=== PATIENT | female | born 1955 | race Caucasian/White ===

== ENCOUNTER → 2023-04-29 14:36 | Outpatient (CLI) | payer MEDICARE, SELFPAY ==
--- NOTE | ~2023-04-29 | XR_ITS ---
EXAM: XR knee LT 3V DATE: 04/29/2023 14:51 HISTORY: no injury anterior knee pain for several years . COMPARISON: None available. FINDINGS: Small knee joint effusion. Moderate medial joint space narrowing. Tricompartmental osteoph ytosis, moderate in the medial compartment. Decreased mineralization. No fracture or dislocation. No lytic or blastic lesion. Joint spaces are maintained. No erosion or periosteal change. Soft tissues w ithin normal limits. IMPRESSION: Tricompartmental left knee osteoarthritic arthritis, moderate in the medial compartment. Reviewed, dictated and finalized at location K. IMPRESSION: Tricompartmental left knee osteoarthritic arthritis, moderate in th e medial compartment.
--- NOTE | ~2023-04-29 | XR_ITS ---
EXAM: XR hand LT 2V, XR hand RT 2V DATE: 04/29/2023 14:51 HISTORY: no injury bilateral hand pain for a few years . COMPARISON: None available. FINDINGS: Normal mineralization. Old right ulnar styloid fracture No acute fracture or dislocation. No lytic or blastic lesion. Joint spaces and physes are mild scattered arthritic changes typical of o steoarthritis, most notably in the interphalangeal joints and trapeziometacarpal joints. No erosion o r periosteal change. Soft tissues within normal limits. IMPRESSION: Mild polyarticular osteoarthritis of the hands. Reviewed, dictated and finalized at location K. IMPRESSION: Mild polyarticular osteoarthritis of the hands.
== END ==
PROVIDERS: PCP Clinical Nurse Specialist; Visit Provider Clinical Nurse Specialist
DX: M17.12 Unilateral primary osteoarthritis, left knee (principal); M19.041 Primary osteoarthritis, right hand; M19.042 Primary osteoarthritis, left hand
CPT/HCPCS: 73120; 73562

== ENCOUNTER 2023-11-08 16:17 | Outpatient (CLI) | payer MEDICARE, SELFPAY ==
--- NOTE | ~2023-11-08 | XR_ITS ---
EXAMINATION: XR lumbar spine 2-3V DATE: 11/08/2023 16:28 INDICATION: Right-sided lumbar radiculopathy TECHNIQUE: Anteroposterior and lateral views of the lumbar spine, and cone-down lateral view of the l umbosacral junction were obtained. COMPARISON: None. FINDINGS: 13 degree lower lumbar levoscoliosis measured between L3 and L5. 2 mm anterolisthesis L4 on L5. 2 mm retrolisthesis L1 on L2. Vertebral body heights are normal. Severe disc height loss at L1-L2, moderat e disc height loss at L2-L3 and mild disc height loss at L3-L4 and L4-L5. Severe left-sided and moder ate right-sided facet osteoarthritis at L5-S1. Mild facet osteoarthritis and more cephalad lumbar spi ne. Mild bilateral sacral iliac osteoarthritis. Visualized lung bases are clear with no pleural effus ion. IMPRESSION: 1. Moderate lumbar levoscoliosis with moderate to severe upper lumbar predominant spondylosis. Reviewed, dictated and finalized at location A. CHER AROUND IMPRESSION: 1. Moderate lumbar levoscoliosis with moderate to severe upper lumbar predomina nt spondylosis.
== END 2023-11-08 16:18 ==
PROVIDERS: PCP Clinical Nurse Specialist; Visit Provider Clinical Nurse Specialist
DX: M41.86 Other forms of scoliosis, lumbar region (principal)
CPT/HCPCS: 72100

== ENCOUNTER → 2023-11-29 09:42 | Outpatient (CLI) | payer MEDICARE, SELFPAY ==
--- NOTE | ~2023-11-29 | XR_ITS ---
AP view of the pelvis and AP and lateral views of the bilateral hips Clinical history: Pain, sacroiliitis Findings: There is subtle linear lucency through the greater trochanter of the left proximal femur, s uggestive of status post, possible subacute fracture isolated to the left greater trochanter. No othe r fracture or dislocation seen. Bilateral hip and SI joint spaces are preserved. Soft tissues are unr emarkable. Impression: Probable fracture isolated to the left greater trochanter, possibly subacute in nature. Correlate cli nically. SI joints are unremarkable. Reviewed, dictated and finalized at location M. ENT ASSISTANT Impression: Probable fracture isolated to the left greater trochanter, possibly subacute in nature. Correlate clinically. SI joints are unremarkable.
== END ==
PROVIDERS: PCP Clinical Nurse Specialist; Visit Provider Anesthesiology Pain Medicine
DX: M46.1 Sacroiliitis, not elsewhere classified (principal); G89.29 Other chronic pain; M25.551 Pain in right hip; M54.9 Dorsalgia, unspecified
CPT/HCPCS: 73521

== ENCOUNTER 2024-01-26 13:31 | Outpatient (CLI) | payer MEDICARE, SELFPAY ==
--- NOTE | 2024-01-26 14:15 | NEURO_ITS ---
Impression: # Complains of numbness of legs and back pain. Non-diabetic. # Poor sensory responses. # Needle/EMG exam abnormal in bilateral EDB. # Higher involvement needs to be ruled out. Nerve Conduction Studies Anti Sensory Summary Table Stim Site NR Peak (ms) P-T Amp (?V) Site1 Site2 Delta-P (ms) Dist (cm) Garrett (m/s) Left Saphenous Anti Sensory (Ant Med Mall) 14cm 3.1 24.1 14cm Ant Med Mall 3.1 0.0 Right Saphenous Anti Sensory (Ant Med Mall) 14cm 2.5 7.3 14cm Ant Med Mall 2.5 0.0 Left Sup Fibular Anti Sensory (Ant Lat Mall) NO RESPONSE 14 cm NR 14 cm Ant Lat Mall 16.0 Right Sup Fibular Anti Sensory (Ant Lat Mall) NO RESPONSE 14 cm NR 14 cm Ant Lat Mall 16.0 Left Sural Anti Sensory (Lat Mall) Calf 3.4 13.4 Calf Lat Mall 3.4 16.0 47 Right Sural Anti Sensory (Lat Mall) Calf 3.8 18.7 Calf Lat Mall 3.8 16.0 42 Motor Summary Table Stim Site NR Onset (ms) O-P Amp (mV) Site1 Site2 Delta-0 (ms) Dist (cm) Garrett (m/s) Left Peroneal Motor (Vastus Med) Ankle 4.0 3.2 Popit Ankle 9.1 38.0 42 Popit 13.1 2.0 Right Peroneal Motor (Vastus Med) Ankle 3.4 0.7 Popit Ankle 8.4 39.0 46 Popit 11.8 0.7 Left Tibial Motor (Abd Burgess Brev) Ankle 3.9 4.5 Knee Ankle 8.9 39.0 44 Knee 12.8 2.7 Right Tibial Motor (Abd Burgess Brev) Ankle 3.8 1.8 Knee Ankle 9.3 38.0 41 Knee 13.1 1.1 F Wave Studies NR F-Lat (ms) L-R F-Lat (ms) Left Peroneal (Mrkrs) (EDB) 50.30 Right Peroneal (Mrkrs) (EDB) DISPERSED RESPONSE NR Left Tibial (Mrkrs) (Abd Hallucis) 50.95 2.02 Right Tibial (Mrkrs) (Abd Hallucis) 52.97 2.02 EMG Side Muscle Nerve Root Ins Act Fibs Amp Dur Recrt Comment Right AntTibialis Dp Br Fibular L4-5 Nml Nml Nml Nml Nml Right Gastroc Tibial S1-2 Nml Nml Nml Nml Nml Right Fibularis Long Sup Br Fibular L5-S1 Nml Nml Nml Nml Nml Right Flex Dig Long Tibial L5-S2 Nml Nml Nml Nml Nml Right Ext Dig Brev Dp Br Fibular L5, S1 Nml Nml Incr >12ms +3 Left AntTibialis Dp Br Fibular L4-5 Nml Nml Nml Nml Nml Left Gastroc Tibial S1-2 Nml Nml Nml Nml Nml Left Fibularis Long Sup Br Fibular L5-S1 Nml Nml Nml Nml Nml Left Flex Dig Long Tibial L5-S2 Nml Nml Nml Nml Nml Left Ext Dig Brev Dp Br Fibular L5, S1 Nml Nml Incr >12ms +3 MTDD
== END 2024-01-26 13:32 | disposition home or self-care (01) ==
LOC: ANHNEURO 13:33
PROVIDERS: PCP Clinical Nurse Specialist; Visit Provider Anesthesiology Pain Medicine
DX: T14.8XXA Other injury of unspecified body region, initial encounter (principal); X58.XXXA Exposure to other specified factors, initial encounter
CPT/HCPCS: 95886; 95911